=== PATIENT | female | born 1955 | race Caucasian/White ===

== ENCOUNTER 2021-07-18 10:42 | Emergency (ER) | payer BC, SELFPAY ==
--- NOTE | 2021-07-18 11:00 | ED.WOUNDLAC ---
HPI - Wound/Laceration General Chief Complaint: Wound/Laceration Stated Complaint: cut left 5th finger Time Seen by Provider: 07/18/21 11:00 Source: patient, RN notes reviewed and old records reviewed Mode of arrival: ambulatory Limitations: no limitations History of Present Illness HPI narrative: 65-year-old female presents to the [facility] with complaints of a cut to the left fifth finger. States that she was trimming a roast to put in the crockpot. Approximately 30 minutes prior to arrival. Bleeding is well controlled. Full range of motion of the finger. Laceration to the dorsal aspect PIP joint fifth left finger. States her last Tdap was at least 8 years ago Related Data Home Medications Medication Instructions Recorded Confirmed clobetasol TOPICAL 07/18/21 07/18/21 levothyroxine 07/18/21 metronidazole applic TOPICAL 07/18/21 prasterone (dhea) [Intrarosa] VAGINAL 07/18/21 rosuvastatin mg 07/18/21 Allergies Allergy/AdvReac Type Severity Reaction Status Date / Time PAPER TAPE Allergy Mild RASH Uncoded 07/18/21 12:45 Review of Systems Review of Systems: All systems reviewed & are unremarkable except as noted in HPI and below Constitutional: Constitutional: Reports no additional constitutional complaints, Denies chills and Denies fever(s) Eyes: Eyes: Reports no additional eye complaints ENT: Reports system reviewed and no additional complaints, except as documented Cardiovascular: Cardiovascular: Reports no additional cardiovascular complaints Respiratory: Respiratory: Reports no additional respiratory complaints Gastrointestinal: Gastrointestinal: Reports no additional gastrointestinal complaints Musculoskeletal: Musculoskeletal: Reports no additional musculoskeletal complaints Integumentary/Breasts: Skin/Breast: Reports as per HPI Neurologic: Reports system reviewed and no additional complaints, except as documented Psychiatric: Psychiatric: Reports no additional psychiatric complaints Allergic/Immunologic: Allergic/Immunologic: Reports no additional allergic/immunologic complaints [facility] Past Medical History Medical History (Updated 07/18/21 @ 14:55 by Bailee Blair) High cholesterol Thyroid disorder Surgical History Surgical History (Updated 07/18/21 @ 14:55 by Bailee Blair) No history of previous surgery Family History Family History Mother Carcinoma of colon Family history of malignant neoplasm of breast in first degree relative Grandparent Carcinoma of colon Social History Social History (Reviewed 07/18/21 @ 14:55 by Bailee Martínez Smoking status: Never smoker Alcohol intake: current Comments At the time of my signature, I reviewed and agree with the nursing past medical, surgical, social, and family history. There is no relevant family history pertinent to the patient complaint. Exam Const: General: healthy appearing, no acute distress and alert Nutritional Appearance: well nourished Orientation/consciousness: patient oriented x3 Limitations: no limitations HENMT: Head: normal to inspection Eyes: Pupils: Equal, round and reactive pupils present Neck: Neck: normal visual inspection, no lymphadenopathy and no meningeal signs Chest: Chest palpation & inspection: normal inspection of the chest Resp: Effort & Inspection: normal respiratory effort Cardio: Rate: regular rate Rhythm: regular rhythm Back/Spine/Pelvis: Back: no CVA tenderness Skin: General skin exam: normal color Wounds: wounds noted flap left 5th finger size (1), bed beefy red and without odor; without any surrounding erythema Neuro: General: patient oriented x3, moves all extremities, no meningeal signs and no focal motor deficits Speech: normal speech Gait exam (Neuro): Normal gait present Extrem: General: normal to inspection Psych: Appearance: grossly normal and well kempt Mental Status: mental status grossly normal Aff
[2021-07-18 11:01] VITALS: BP 114/68; PULSE 66; RESP 17; TEMP 36.3; O2SAT 100
[2021-07-18 11:02] VITALS: BP 114/68; PULSE 66; RESP 17; TEMP 36.3; O2SAT 100
[2021-07-18] MEDS: TETANUS,DIPHTHERIA,AC PERTUSSIS ADULT (0.5 ML) BOOSTRIX IM (12:01)
== END 2021-07-18 12:20 | disposition home or self-care (01) ==
PROVIDERS: Emergency Provider Nurse Practitioner
DX: S61.217A Laceration without foreign body of left little finger without damage to nail, initial encounter (principal); W45.8XXA Other foreign body or object entering through skin, initial encounter; Y93.G1 Activity, food preparation and clean up; Z23 Encounter for immunization; E78.00 Pure hypercholesterolemia, unspecified; E07.9 Disorder of thyroid, unspecified
CPT/HCPCS: 12001; 90471; 90715; 99212; G0463

== ENCOUNTER 2022-04-24 01:48 | Day surgery (SDC) | payer BC, SELFPAY ==
[2022-04-08 14:47] VITALS: BMI 31.5
[2022-04-24 11:42] VITALS: BP 106/70; PULSE 67; RESP 20; TEMP 36.3; O2SAT 100
[2022-04-24] MEDS: LACTATED RINGERS 1,000 ML 150 ML IV CONT (11:48)
--- NOTE | 2022-04-24 12:27 | WPDANESEPPF ---
Anes - Initial Pre Proc Eval Procedure: Operation Date: 04/24/22 13:00 Proposed Procedures p Screening Colonoscopy - Anton Morales MD Date/Time: 04/24/22 12:27 Surgeon: Anton Morales MD Pre Op Diagnosis: yo screen,per hx colon polyps, fam hx of colon ca Patient Data Age: 66 Gender: F Height: 1.65 m Weight: 86.4 kg Last Vital Signs Temp 97.4 F L 04/24/22 11:42 Pulse 67 04/24/22 11:42 Resp 20 04/24/22 11:42 BP 106/70 04/24/22 11:42 Pulse Ox 100 04/24/22 11:42 O2 Del Method Room Air 04/24/22 11:42 Allergies Allergy/AdvReac Type Severity Reaction Status Date / Time PAPER TAPE Allergy Mild RASH Uncoded 04/24/22 11:41 Home Medications Medication Instructions Recorded Confirmed Type clobetasol 0.05 % topical ointment 1 applic topical PRN PRN Rash 07/18/21 04/08/22 History levothyroxine 112 mcg tablet 112 mcg PO DAILY 07/18/21 04/08/22 History metronidazole 0.75 % topical cream 1 applic topical PRN PRN Rash 07/18/21 04/08/22 History prasterone (dhea) 6.5 mg vaginal 6.5 mg vaginal DAILY 07/18/21 04/08/22 History insert (Intrarosa) rosuvastatin 5 mg tablet 5 mg PO DAILY 07/18/21 04/08/22 History Lactobacillus rhamnosus GG 10 1 cap PO DAILY 04/08/22 04/08/22 History billion cell-inulin 200 mg capsule ([facility]) cholecalciferol (vitamin D3) 25 25 mcg PO DAILY 04/08/22 04/08/22 History mcg (1,000 unit) tablet (Vitamin D3) fluticasone propionate 50 2 spray intranasal DAILY 04/08/22 04/08/22 History mcg/actuation nasal spray,suspension (Allergy Relief (fluticasone)) omega 2-yyi-cze-fish oil 1,000 mg 1 cap PO DAILY 04/08/22 04/08/22 History (120 mg-180 mg) capsule (Fish Oil) zoledronic acid 5 mg/100 mL in 5 mg IV ONCE 04/08/22 04/08/22 History mannitol 5 %-water intravenous piggybck (Reclast) Patient hx anesthesia problems: none Family hx anesthesia problems: none Results Review: All pre-operative results and documents have been reviewed as part of the pre-operative evaluation. [facility] Past Medical History Medical History (Updated 07/19/21 @ 00:01 by Armando Flores) High cholesterol Thyroid disorder Surgical History Surgical History (Updated 07/18/21 @ 14:55 by Bailee Blair, SOFTWARE SECURITY CONSULTANT) No history of previous surgery Family History Family History Mother Carcinoma of colon Family history of malignant neoplasm of breast in first degree relative Grandparent Carcinoma of colon Social History Social History Smoking status: Never smoker Alcohol intake: current Substance use: never Substance use type: does not use Living arrangements: with family Spiritual care concerns: No Anes - Eval Final PreProcedure Day of Procedure 04/24/22 12:27 Patient weight: obese Heart: regular rate and rhythm Lungs: clear to auscultation Airway: Mallampati scale class II Neurological: alert and oriented Last oral intake: >/= 8 hours ASA classification: III Emergent: no Anesthetic plan: proceed Anesthesia type and monitoring: general GIVS and standard monitoring Results Review: All pre-operative results and documents have been reviewed as part of the pre-operative evaluation. Informed Consent: The patient's anesthetic plan and its attendant risks and benefits were discussed with the patient/family/POA. Questions were solicited and answers provided to the satisfaction of the patient/family/POA.
--- NOTE | 2022-04-24 12:46 | PM.HPGS ---
History of Present Illness History of Present Illness Consent: Risks, benefits, and alternatives have been discussed and questions answered. Patient agrees to proceed with procedure. Chief complaint: yo screen,per hx colon polyps, fam hx of colon ca Narrative: Eula Mendes is a 66 year old female Presents for screening colonoscopy. Patient reports that her current weight appetite and bowel movements are normal. Patient denies abdominal pain. She has had no bleeding. Family history is significant her mother had colon cancer. Grandfather on both maternal and paternal sides of the family had colon cancer. Patient has previously had colon polyps in 2017 and previously in 2012. Patient presents today for screening colonoscopy. She reports that her current weight appetite bowel movements are normal. She denies any blood in her stools. Review of Systems Review of Systems: Review of systems noncontributory. [facility] Past Medical History Medical History (Updated 04/24/22 @ 12:48 by Anton Morales MD) High cholesterol Thyroid disorder Surgical History Surgical History (Updated 07/18/21 @ 14:55 by Baiele Blair APRN) No history of previous surgery Family History Family History Mother Carcinoma of colon Family history of malignant neoplasm of breast in first degree relative Grandparent Carcinoma of colon Social History Social History Smoking status: Never smoker Alcohol intake: current Substance use: never Substance use type: does not use Living arrangements: with family Spiritual care concerns: No Meds Home Medications and Allergies Home Medications Medication Instructions Recorded Confirmed Type clobetasol 0.05 % topical ointment 1 applic topical PRN PRN Rash 07/18/21 04/08/22 History levothyroxine 112 mcg tablet 112 mcg PO DAILY 07/18/21 04/08/22 History metronidazole 0.75 % topical cream 1 applic topical PRN PRN Rash 07/18/21 04/08/22 History prasterone (dhea) 6.5 mg vaginal 6.5 mg vaginal DAILY 07/18/21 04/08/22 History insert (Intrarosa) rosuvastatin 5 mg tablet 5 mg PO DAILY 07/18/21 04/08/22 History Lactobacillus rhamnosus GG 10 1 cap PO DAILY 04/08/22 04/08/22 History billion cell-inulin 200 mg capsule ([facility]) cholecalciferol (vitamin D3) 25 25 mcg PO DAILY 04/08/22 04/08/22 History mcg (1,000 unit) tablet (Vitamin D3) fluticasone propionate 50 2 spray intranasal DAILY 04/08/22 04/08/22 History mcg/actuation nasal spray,suspension (Allergy Relief (fluticasone)) omega 6-tqz-tut-fish oil 1,000 mg 1 cap PO DAILY 04/08/22 04/08/22 History (120 mg-180 mg) capsule (Fish Oil) zoledronic acid 5 mg/100 mL in 5 mg IV ONCE 04/08/22 04/08/22 History mannitol 5 %-water intravenous piggybck (Reclast) Allergies Allergy/AdvReac Type Severity Reaction Status Date / Time PAPER TAPE Allergy Mild RASH Uncoded 04/24/22 11:41 Vital Signs Vital Signs - 24 hr 04/24/22 11:42 Temperature 97.4 F L Pulse Rate 67 Respiratory Rate 20 Blood Pressure 106/70 Pulse Oximetry 100 Oxygen Delivery Room Air Exam Narrative: Physical exam reveals patient be alert. Vital signs stable. HEENT exam is unremarkable. Patient is anicteric. Lungs are clear to auscultation and percussion. Heart is without murmur or extra sounds. Abdomen bowel sounds are present soft nontender with no organomegaly. Digital external rectal exam is normal. Assessment and Plan Assessment and plan (1) History of colon polyps: Code(s): Z86.010 - Personal history of colonic polyps Status: Acute Assessment and Plan: Patient has a prior history of colon polyps. Plan for surveillance colonoscopy every 5 years. Further recommendations will be given after colonoscopy. (2) Family history of colon cancer in mother: Code(s): Z
[2022-04-24 13:16] VITALS: BP 93/46; PULSE 59; RESP 17; O2SAT 95
[2022-04-24 13:26] VITALS: BP 98/59; PULSE 59; RESP 25; O2SAT 98
[2022-04-24 13:36] VITALS: BP 99/61; PULSE 52; RESP 23; O2SAT 99
== END 2022-04-24 13:45 | disposition home or self-care (01) ==
PROVIDERS: PCP Internal Medicine; Visit Provider Internal Medicine Gastroenterology
PROC: 0DJD8ZZ Inspection of Lower Intestinal Tract, Via Natural or Artificial Opening Endoscopic (ICD-10-PCS; CPT 45378; principal; 2022-04-24 13:00)
DX: Z12.11 Encounter for screening for malignant neoplasm of colon (principal); D12.0 Benign neoplasm of cecum; D12.3 Benign neoplasm of transverse colon; Z80.0 Family history of malignant neoplasm of digestive organs; K57.30 Diverticulosis of large intestine without perforation or abscess without bleeding; E78.00 Pure hypercholesterolemia, unspecified; E03.9 Hypothyroidism, unspecified; E66.9 Obesity, unspecified; Z68.31 Body mass index [BMI] 31.0-31.9, adult
CPT/HCPCS: 45385; 88305; J2001; J2704; J7120

== ENCOUNTER 2022-07-14 10:07 | Emergency (ER) | payer MEDICARE, BC, SELFPAY ==
[2022-07-14] VITALS (29 sets, daily range): BP systolic 104–127; BP diastolic 56–70; PULSE 51–66; RESP 11–24; TEMP 36.3–36.5; O2SAT 95–100
--- NOTE | ~2022-07-14 | XR_ITS ---
EXAMINATION: XR chest 2V DATE: 07/14/2022 11:53 INDICATION: Left chest pain. TECHNIQUE: Frontal and lateral views of the chest were obtained. COMPARISON: Chest 2 views 03/13/2014, CT abdomen and pelvis 04/24/2015 FINDINGS: A calcified left lung nodule and calcified left hilar and mediastinal lymph nodes are consi stent with old granulomatous disease. No pleural effusion or pneumothorax. The heart size is normal. There is a suture anchor in right humeral head. IMPRESSION: 1. No acute cardiopulmonary disease. Reviewed, dictated and finalized at location A. ATIONS ASSISTANT
--- NOTE | 2022-07-14 10:08 | ECG_ITS ---
Measurements Intervals [place] Rate: 64 P: 31 MD: 183 QRS: 55 QRSD: 88 T: 44 QT: 383 QTc: 397 Interpretive Statements SINUS RHYTHM NORMAL ECG COMPARED TO ECG 12/26/2018 10:51:46 SINUS RHYTHM NOW PRESENT Electronically Signed On 07-14-2022 10:20:19 [employer] by Chinmay Sparrow D.O.
[2022-07-14 10:38] LABS: Basophils Absolute Auto 0.1 K/mm3 (0.0-0.1); Basophils Percent Auto 0.7 % (0.2-1.2); Eosinophils Absolute Auto 0.1 K/mm3 (0-0.3); Eosinophils Percent Auto 0.9 % (0-4.4); Hematocrit 41.4 % (37.0-47.0); Hemoglobin 13.8 g/dL (12.0-15.0); Immature Granulocyte Absolute 0.02 K/mm3 (0.00-0.031); Immature Granulocyte Percent A 0.3 % (0-0.5); Lymphocytes Absolute Auto 1.66 K/mm3 (0.9-3.2); Lymphocytes Percent Auto 23.5 % (18.3-44.2); Mean Corpuscular HGB Conc 33.3 g/dl (32-36); Mean Corpuscular Hemoglobin 29.4 pg (26-34); Mean Corpuscular Volume 88.1 fl (80-100); Mean Platelet Volume 10.5 fl (7.4-10.4); Monocytes Absolute Auto 0.4 K/mm3 (0.1-0.6); Monocytes Percent Auto 5.8 % (2.6-8.5); Neutrophils Absolute Auto 4.9 K/mm3 (1.3-6.7); Neutrophils Percent Auto 68.8 % (45.5-73.1); Platelet Count Result 186 k/mm3 (150-375); Red Cell Distribution Width 13.2 % (11.5-14.5); White Blood Count 7.1 K/mm3 (4.5-10.0)
[2022-07-14 10:45] LABS: Alanine Aminotransferase 25 U/L (6-35); Albumin Level 4.4 g/dL (3.5-5.1); Alkaline Phosphatase 81 U/L (38-126); Anion Gap 7 mmol/L (8-16); Aspartate Amino Transferase 33 U/L (14-36); Bilirubin,Total 0.6 mg/dL (0.2-1.3); Blood Urea Nitrogen 19 mg/dL (7-17); Calcium 8.6 mg/dL (8.4-10.2); Carbon Dioxide 25 mmol/L (22-30); Chloride 101 mmol/L (98-107); Estimated CRCL calculation 63 ml/min; Estimated Glomerular Filt Rate > 60; Glucose 83 mg/dL (65-110); Lipase 431 U/L (23-300); Potassium 3.7 mmol/L (3.4-5.0); Sodium 133 mmol/L (137-145)
[2022-07-14 10:50] LABS: Prothrombin Time 12.7 Seconds (11.1-14.7)
[2022-07-14 10:51] LABS: Partial Thromboplastin Time 26.8 SECONDS (22.3-36.8)
[2022-07-14 10:57] LABS: Troponin I < 0.012 ng/mL (0.000-0.034)
[2022-07-14 13:47] LABS: Troponin I < 0.012 ng/mL (0.000-0.034)
[2022-07-14 17:05] LABS: Troponin I < 0.012 ng/mL (0.000-0.034)
--- NOTE | 2022-07-14 19:04 | ED.CHESTPAIN ---
HPI - Chest Pain General Chief Complaint: Chest Pain Stated Complaint: cp, jaw pain arm pain Time Seen by Provider: 07/14/22 18:26 Source: patient Mode of arrival: ambulatory Limitations: no limitations History of Present Illness HPI narrative: Patient is a 66-year-old female who presents to the ED with report of CP. Patient reports she did a spin class from 830 to 9:30 AM. She felt slightly nauseous and fatigued during the workout class. Approximately 30 minutes after working out she developed pain and numbness in her left-sided jaw, pain in her left upper arm and pressure in her midsternal chest, radiating through to her back. Initial episode of pain lasted for approximately 30 minutes before resolving. Pain has been intermittent while waiting in the waiting room. Denies any pain currently. She did feel slightly short of breath with her pain. Patient denies any vomiting, abdominal pain, recent cough or cold symptoms, fevers, pain or swelling in lower extremities. She does have a history of hyperlipidemia and obesity and reports a family history of heart disease in her father at age 60. No smoking, hypertension, diabetes mellitus. Patient denies history of DVT or PE. She does note she recently traveled via car across country to [place] and flew to and from [place]. Related Data Home Medications Medication Instructions Recorded Confirmed clobetasol 0.05 % topical ointment 1 applic topical PRN PRN Rash 07/18/21 04/08/22 levothyroxine 112 mcg tablet 112 mcg PO DAILY 07/18/21 04/08/22 metronidazole 0.75 % topical cream 1 applic topical PRN PRN Rash 07/18/21 04/08/22 prasterone (dhea) 6.5 mg vaginal 6.5 mg vaginal DAILY 07/18/21 04/08/22 insert (Intrarosa) rosuvastatin 5 mg tablet 5 mg PO DAILY 07/18/21 04/08/22 Lactobacillus rhamnosus GG 10 1 cap PO DAILY 04/08/22 04/08/22 billion cell-inulin 200 mg capsule ([facility]) cholecalciferol (vitamin D3) 25 25 mcg PO DAILY 04/08/22 04/08/22 mcg (1,000 unit) tablet (Vitamin D3) fluticasone propionate 50 2 spray intranasal DAILY 04/08/22 04/08/22 mcg/actuation nasal spray,suspension (Allergy Relief (fluticasone)) omega 4-zvg-fws-fish oil 1,000 mg 1 cap PO DAILY 04/08/22 04/08/22 (120 mg-180 mg) capsule (Fish Oil) zoledronic acid 5 mg/100 mL in 5 mg IV ONCE 04/08/22 04/08/22 mannitol 5 %-water intravenous piggybck (Reclast) Allergies Allergy/AdvReac Type Severity Reaction Status Date / Time PAPER TAPE Allergy Mild RASH Uncoded 07/14/22 18:49 Review of Systems Review of Systems: CONSTITUTIONAL: Denies fever, chills, or sweats. ENT: Denies rhinorrhea, congestion, sore throat. CARDIOVASCULAR: See HPI. RESPIRATORY: See HPI. GASTROINTESTINAL: Reports nausea. Denies abdominal pain, vomiting, or diarrhea. GENITOURINARY: Denies dysuria or hematuria. MUSCULOSKELETAL: See HPI. NEUROLOGIC: Denies headache, numbness, or weakness. All systems reviewed & are unremarkable except as noted in HPI and below PMFSH Past Medical History Medical History High cholesterol Thyroid disorder Surgical History Surgical History No history of previous surgery Family History Family History (Updated 07/14/22 @ 19:23 by Paige Magdaleno PA-C) Mother Carcinoma of colon Family history of malignant neoplasm of breast in first degree relative Grandparent Carcinoma of colon Father Heart disease Social History Social History Smoking status: Never smoker Alcohol intake: current Substance use: never Substance use type: does not use Spiritual care concerns: No Exam Narrative: GENERAL: Well appearing, obese, non-toxic, in no acute distress. HEAD: Normocephalic, atraumatic. NECK: Supple. No adenopathy, no masses. RESPIRATORY: Airway patent, respiratio
[2022-07-14 20:39] LABS: D Dimer 0.47 ug/mL (<0.48)
== END 2022-07-14 22:46 | disposition home or self-care (01) ==
PROVIDERS: Emergency Medicine; Emergency Provider Physician Assistant; PCP Internal Medicine
DX: R07.89 Other chest pain (principal); E78.00 Pure hypercholesterolemia, unspecified; E07.9 Disorder of thyroid, unspecified
CPT/HCPCS: 36415; 71046; 80053; 83690; 84484; 85025; 85380; 85610; 85730; 93005; 99284

== ENCOUNTER 2022-07-24 10:21 | Outpatient (CLI) | payer MEDICARE, BC, SELFPAY ==
[2022-07-24 11:50] LABS: Cholesterol 184 mg/dL (0-200); HDL Direct 67 mg/dL; Hemoglobin A1C 5.2 % (<5.7); Triglycerides 97 mg/dL (<150)
[2022-07-24 12:01] LABS: LDL Cholesterol Direct 68 mg/dL
== END 2022-07-24 10:22 | disposition home or self-care (01) ==
PROVIDERS: PCP Internal Medicine; Visit Provider Internal Medicine
DX: R07.9 Chest pain, unspecified (principal); R79.9 Abnormal finding of blood chemistry, unspecified; E03.8 Other specified hypothyroidism
CPT/HCPCS: 36415; 80061; 83036; 84443

== ENCOUNTER 2023-07-23 00:10 | Day surgery (SDC) | payer MEDICARE, BC, SELFPAY ==
--- NOTE | 2023-06-22 14:09 | PC.NURSE ---
Report to the Outpatient Waiting Room, entrance under the green pavilion located off [facility], at time _0615 on date __06/25/23 . Planned Procedure Time: __814 . Time changes happen often and if your time is changed the preop area will call you the afternoon before. - You and your visitor will be asked to self-screen and do not enter if you have any COVID symptoms. - A mask is optional within the hospital at this time. Patients may have clear liquids (water, carbonated beverages, clear teas, apple juice) until 3 hours prior to surgery( 5:15 am ) with a maximum of 20 ounces. - No food from midnight until time of surgery - Take the following medications with a SIP of water the morning of surgery: LEVOTHYROXINE DO NOT STOP ANY OF YOUR OTHER PRESCRIPTION MEDICATIONS PRIOR TO SURGERY ?EXCEPT THE FOLLOWING Medications to discontinue per physician ____ALL VITAMINS AND SUPPLEMENTS 3 DAYS PRE OP LAST DOSE 06/21/23 Please no make-up, nail [place] islander, hairspray, perfume, deodorant, or body powder the day of surgery. No jewelry (including any body piercings) or valuables the day of surgery, leave them at home. Please take a shower or bath the night before, or the morning of, surgery with an antibacterial soap. Wear comfortable, loose fitting clothing. Children are encouraged to wear pajamas. - Jewelry must be removed prior to entering the operating room. Rings and piercings that are not removed may be cut off. - The hospital will not accept responsibility for valuables. - Please leave all valuables, including medications, at home the day of surgery. If you are going home after surgery, a licensed taxicab driver must drive you home. - NO public transportation without another adult if you receive anesthesia. - We recommend that an adult stay with you for 24 hours following discharge. - We also recommend that you do not drive, make important decision, drink alcoholic beverages, or take any drugs that were not prescribed by your health care provider for at least 24 hours after your discharge time. For Pediatric surgeries, we recommend two adults accompany the child home. Follow any additional instructions given to you from your surgeon. If you or anyone in your household have experienced Covid symptoms in the past week, please notify your surgeon or the nurse liaison at the phone number below for possible testing. Telephone instructions given to _PATIENT and asked if any additional questions and then verbalized understanding. Patient advised to call surgeon office or pre surgery nurse liaison [phone] if any additional questions.
[2023-06-22 14:14] VITALS: BMI 35.8
--- NOTE | 2023-06-23 07:55 | PM.IMHP ---
H&P: HPI History of Present Illness Date/Time: 06/23/23 07:55 Chief Complaint: cystocele Narrative: she is recurrent cystocele after colpopexy and sling procedure. She does not have incontinence. She is history of asymptomatic bacteriuria. She desires repair of her cystocele Review of Systems Review of Systems: All systems reviewed & are unremarkable except as noted in HPI and below PMFSH Past Medical History Medical History High cholesterol Thyroid disorder Surgical History Surgical History No history of previous surgery Family History Family History Mother Carcinoma of colon Family history of malignant neoplasm of breast in first degree relative Grandparent Carcinoma of colon Father Heart disease Social History Social History Smoking status: Never smoker Alcohol intake: current Substance use: never Substance use type: does not use Living arrangements: with family Spiritual care concerns: No Meds Home Medications and Allergies Home Medications Medication Instructions Recorded Confirmed Type clobetasol 0.05 % topical ointment 1 applic topical PRN PRN Rash 07/18/21 06/22/23 History levothyroxine 112 mcg tablet 112 mcg PO DAILY 07/18/21 06/22/23 History metronidazole 0.75 % topical cream 1 applic topical PRN PRN Rash 07/18/21 06/22/23 History prasterone (dhea) 6.5 mg vaginal 6.5 mg vaginal 2XW 07/18/21 06/22/23 History insert (Intrarosa) rosuvastatin 5 mg tablet 5 mg PO DAILY 07/18/21 06/22/23 History Lactobacillus rhamnosus GG 10 1 cap PO DAILY 04/08/22 06/22/23 History billion cell-inulin 200 mg capsule ([employer]) cholecalciferol (vitamin D3) 25 25 mcg PO DAILY 04/08/22 06/22/23 History mcg (1,000 unit) tablet (Vitamin D3) fluticasone propionate 50 2 spray intranasal HS 04/08/22 06/22/23 History mcg/actuation nasal spray,suspension (Allergy Relief (fluticasone)) omega 2-gex-jte-fish oil 1,000 mg 1 cap PO DAILY 04/08/22 06/22/23 History (120 mg-180 mg) capsule (Fish Oil) zoledronic acid 5 mg/100 mL in 5 mg IV ONCE 04/08/22 06/22/23 History mannitol 5 %-water intravenous piggybck (Reclast) cetirizine 10 mg tablet (Zyrtec) 10 mg PO DAILY 06/22/23 06/22/23 History d-mannose 500 mg capsule 500 mg PO DAILY 06/22/23 06/22/23 History Allergies Allergy/AdvReac Type Severity Reaction Status Date / Time bupivacaine AdvReac Other Verified 06/22/23 13:56 PAPER TAPE Allergy Mild RASH Uncoded 06/22/23 13:51 Exam Narrative: no acute distress normal breathing alert oriented x3 cystocele to the introitus with good apical support Assessment and Plan Assessment and plan (1) Cystocele: Status: Acute Assessment and Plan: we are planning for a cystocele repair. She understands risks of bleeding, infection, damage surrounding organs, damage to urinary tract, recurrent prolapse, recurrent incontinence, dyspareunia. She agrees to proceed
--- NOTE | 2023-06-25 07:16 | WPDHPUPDATE1 ---
History and Physical Update Update Date/Time: 06/25/23 07:16 History and Physical has been reviewed, including an updated exam of the patient. There are NO changes in the patient's condition. Risks, benefits, and alternatives have been discussed and questions answered. Patient agrees to proceed with procedure.
--- NOTE | 2023-07-18 10:08 | PM.IMHP ---
H&P: HPI History of Present Illness Date/Time: 07/18/23 10:08 Chief Complaint: cystocele Narrative: 67-year-old with pelvic organ prolapse. She has a moderate cystocele. She has a degree of incomplete bladder emptying. She is asymptomatic bacteriuria as well. She would like a cystocele repair for pelvic organ prolapse Review of Systems Review of Systems: All systems reviewed & are unremarkable except as noted in HPI and below PMFSH Past Medical History Medical History (Updated 07/18/23 @ 10:10 by Familia Bartholomew MD) Cystocele High cholesterol Thyroid disorder Surgical History Surgical History No history of previous surgery Family History Family History Mother Carcinoma of colon Family history of malignant neoplasm of breast in first degree relative Grandparent Carcinoma of colon Father Heart disease Social History Social History Smoking status: Never smoker Alcohol intake: current Substance use: never Substance use type: does not use Living arrangements: with family Spiritual care concerns: No Meds Home Medications and Allergies Home Medications Medication Instructions Recorded Confirmed Type clobetasol 0.05 % topical ointment 1 applic topical PRN PRN Rash 07/18/21 06/22/23 History levothyroxine 112 mcg tablet 112 mcg PO DAILY 07/18/21 06/22/23 History metronidazole 0.75 % topical cream 1 applic topical PRN PRN Rash 07/18/21 06/22/23 History prasterone (dhea) 6.5 mg vaginal 6.5 mg vaginal 2XW 07/18/21 06/22/23 History insert (Intrarosa) rosuvastatin 5 mg tablet 5 mg PO DAILY 07/18/21 06/22/23 History Lactobacillus rhamnosus GG 10 1 cap PO DAILY 04/08/22 06/22/23 History billion cell-inulin 200 mg capsule ([facility]) cholecalciferol (vitamin D3) 25 25 mcg PO DAILY 04/08/22 06/22/23 History mcg (1,000 unit) tablet (Vitamin D3) fluticasone propionate 50 2 spray intranasal HS 04/08/22 06/22/23 History mcg/actuation nasal spray,suspension (Allergy Relief (fluticasone)) omega 8-out-oma-fish oil 1,000 mg 1 cap PO DAILY 04/08/22 06/22/23 History (120 mg-180 mg) capsule (Fish Oil) zoledronic acid 5 mg/100 mL in 5 mg IV ONCE 04/08/22 06/22/23 History mannitol 5 %-water intravenous piggybck (Reclast) cetirizine 10 mg tablet (Zyrtec) 10 mg PO DAILY 06/22/23 06/22/23 History d-mannose 500 mg capsule 500 mg PO DAILY 06/22/23 06/22/23 History Allergies Allergy/AdvReac Type Severity Reaction Status Date / Time bupivacaine AdvReac Other Verified 06/22/23 13:56 PAPER TAPE Allergy Mild RASH Uncoded 06/22/23 13:51 Exam Narrative: no acute distress normal breathing cystocele to the introitus Assessment and Plan Assessment and plan (1) Cystocele with prolapse: Code(s): N81.4 - Uterovaginal prolapse, unspecified Status: Acute Assessment and Plan: plan for cystocele repair. Understands risks of bleeding, infection, damage to surrounding organs, damage to the bladder. Understands risks of recurrence and dyspareunia. Understands it may not help her asymptomatic bacteriuria. Understands the risk of de Enoch urinary incontinence. Agrees to proceed
--- NOTE | 2023-07-20 11:38 | PC.NURSE ---
Report to the Outpatient Waiting Room, entrance under the green pavilion located off [facility], at time _0715_ on date _[id number]_. Planned Procedure Time: _0915_. Time changes happen often and if your time is changed the preop area will call you the afternoon before. - You and your visitor will be asked to self-screen and do not enter if you have any COVID symptoms. - A mask is optional within the hospital at this time. Patients may have clear liquids (water, carbonated beverages, clear teas, apple juice) until 3 hours prior to surgery with a maximum of 20 ounces. - No food from midnight until time of surgery Take the following medications with a SIP of water the morning of surgery: ____Levothyroxine DO NOT STOP ANY OF YOUR OTHER PRESCRIPTION MEDICATIONS PRIOR TO SURGERY ?EXCEPT THE FOLLOWING Medications to discontinue per physician All vitamins and supplements Date to take last [id number] Please no make-up, nail ethiopian, hairspray, perfume, deodorant, or body powder the day of surgery. No jewelry (including any body piercings) or valuables the day of surgery, leave them at home. Please take a shower or bath the night before, or the morning of, surgery with an antibacterial soap. Wear comfortable, loose fitting clothing. - Jewelry must be removed prior to entering the operating room. Rings and piercings that are not removed may be cut off. - The hospital will not accept responsibility for valuables. - Please leave all valuables, including medications, at home the day of surgery. If you are going home after surgery, a licensed ice delivery driver must drive you home. - NO public transportation without another adult if you receive anesthesia. - We recommend that an adult stay with you for 24 hours following discharge. - We also recommend that you do not drive, make important decision, drink alcoholic beverages, or take any drugs that were not prescribed by your health care provider for at least 24 hours after your discharge time. Follow any additional instructions given to you from your surgeon. If you or anyone in your household have experienced Covid symptoms in the past week, please notify your surgeon or the nurse liaison at the phone number below for possible testing. Telephone instructions given to _Eula_and asked if any additional questions and then verbalized understanding. Patient advised to call surgeon office or pre surgery nurse liaison [phone] if any additional questions.
[2023-07-23] VITALS (11 sets, daily range): BP systolic 105–145; BP diastolic 52–80; PULSE 60–87; RESP 12–16; TEMP 36.2–36.8; O2SAT 94–100
--- NOTE | 2023-07-23 07:17 | WPDHPUPDATE1 ---
History and Physical Update Update Date/Time: 07/23/23 07:17 History and Physical has been reviewed, including an updated exam of the patient. There are NO changes in the patient's condition. Risks, benefits, and alternatives have been discussed and questions answered. Patient agrees to proceed with procedure.
[2023-07-23] MEDS: LACTATED RINGERS 1,000 ML 30 ML IV CONT ×2 (07:45→11:10)
--- NOTE | 2023-07-23 08:23 | WPDANESEPPF ---
Anes - Initial Pre Proc Eval Procedure: Operation Date: 07/23/23 09:15 Proposed Procedures p Cystocele Repair - Familia Bartholomew MD Date/Time: 07/23/23 08:23 Surgeon: Familia Bartholomew MD Pre Op Diagnosis: midline cystocele Patient Data Age: 67 Gender: F Height: 1.65 m Weight: 95.7 kg Last Vital Signs Temp 98.3 F 07/23/23 07:35 Pulse 66 07/23/23 07:35 Resp 16 07/23/23 07:35 BP 116/67 07/23/23 07:35 Pulse Ox 96 07/23/23 07:35 O2 Del Method Room Air 07/23/23 07:35 Allergies Allergy/AdvReac Type Severity Reaction Status Date / Time bupivacaine AdvReac Other Verified 06/22/23 13:56 PAPER TAPE Allergy Mild RASH Uncoded 06/22/23 13:51 Home Medications Medication Instructions Recorded Confirmed Type clobetasol 0.05 % topical ointment 1 applic topical PRN PRN Rash 07/18/21 06/22/23 History levothyroxine 112 mcg tablet 112 mcg PO DAILY 07/18/21 06/22/23 History metronidazole 0.75 % topical cream 1 applic topical PRN PRN Rash 07/18/21 06/22/23 History prasterone (dhea) 6.5 mg vaginal 6.5 mg vaginal 2XW 07/18/21 06/22/23 History insert (Intrarosa) rosuvastatin 5 mg tablet 5 mg PO DAILY 07/18/21 06/22/23 History Lactobacillus rhamnosus GG 10 1 cap PO DAILY 04/08/22 06/22/23 History billion cell-inulin 200 mg capsule ([facility]) cholecalciferol (vitamin D3) 25 25 mcg PO DAILY 04/08/22 06/22/23 History mcg (1,000 unit) tablet (Vitamin D3) fluticasone propionate 50 2 spray intranasal HS 04/08/22 06/22/23 History mcg/actuation nasal spray,suspension (Allergy Relief (fluticasone)) omega 9-gco-flk-fish oil 1,000 mg 1 cap PO DAILY 04/08/22 06/22/23 History (120 mg-180 mg) capsule (Fish Oil) zoledronic acid 5 mg/100 mL in 5 mg IV ONCE 04/08/22 06/22/23 History mannitol 5 %-water intravenous piggybck (Reclast) cetirizine 10 mg tablet (Zyrtec) 10 mg PO DAILY 06/22/23 06/22/23 History d-mannose 500 mg capsule 500 mg PO DAILY 06/22/23 06/22/23 History docusate sodium 100 mg capsule 100 mg PO BID #60 caps 07/23/23 Rx (Colace) hydrocodone 5 mg-acetaminophen 325 1 tablet PO Q6H PRN pain #20 tabs 07/23/23 Rx mg tablet Patient hx anesthesia problems: post op nausea/vomiting Family hx anesthesia problems: none Results Review: All pre-operative results and documents have been reviewed as part of the pre-operative evaluation. [facility] Past Medical History Medical History (Updated 07/18/23 @ 10:10 by Familia Bartholomew MD) Cystocele High cholesterol Thyroid disorder Surgical History Surgical History No history of previous surgery Family History Family History Mother Carcinoma of colon Family history of malignant neoplasm of breast in first degree relative Grandparent Carcinoma of colon Father Heart disease Social History Social History Smoking status: Never smoker Alcohol intake: current Substance use: never Substance use type: does not use Living arrangements: with family Spiritual care concerns: No Anes - Eval Final PreProcedure Day of Procedure 07/23/23 08:23 Patient weight: normal Heart: regular rate and rhythm Lungs: clear to auscultation Airway: Mallampati scale class II Neurological: alert and oriented Last oral intake: >/= 8 hours ASA classification: III Emergent: no Anesthetic plan: proceed Anesthesia type and monitoring: general LMA and standard monitoring Results Review: All pre-operative results and documents have been reviewed as part of the pre-operative evaluation. Informed Consent: The patient's anesthetic plan and its attendant risks and benefits were discussed with the patient/family/POA. Questions were solicited and answers provided to the satisfaction of the patient/family/POA.
[2023-07-23] MEDS: SCOPOLAMINE 1 MG PATCH 1 PATCH TRANSDERM (08:30)
[2023-07-23] MEDS: ceFAZolin 2 GM/D5W 50 ML 2 GM/50 ML BAG IVPB (08:37)
[2023-07-23] MEDS: BUPIVACAINE/EPINEPHRINE 0.5% 10 ML VIAL 30 ML INFILTRATE (09:02)
--- NOTE | 2023-07-23 11:22 | W.PM.PROC2 ---
Procedure Note - Detailed Date of Procedure 07/23/23 Pre-op Diagnosis midline cystocele Bladder lesion Post-op Diagnosis Same Procedure Performed Cystocele repair-anterior colporrhaphy Cystoscopy with biopsy Surgeon Familia Bartholomew MD Anesthesia MAC Indications This will with a symptomatic cystocele. She has no stress incontinence. She presents for cystocele repair. She understands risks of bleeding, infection, damage to surrounding organs, damage to the urinary tract, recurrence of prolapse, dyspareunia, postop voiding dysfunction including incontinence and retention, hip and leg pain. She also understands it may not help her recurrent infections. She agrees to proceed Findings Cystocele repaired. A small red patch at dome of bladder which was biopsied Description of Procedure She was correctly identified. Informed consent obtained. She from the operating room. She was given general anesthesia. She was placed in dorsal thigh position. She was prepped draped sterile fashion. Time-out performed. She had a cystocele to the level the introitus. I placed Kasper catheter. I placed a [place] retractor. I grasped the cystocele with Allis clamps. She had good apical support. I infiltrated subcutaneous tissues with local mixed with epinephrine. A midline vaginal incision. I dissected out laterally both on the patient's right and the left removing the mucosa from the underlying fascial structures. I did this back to the apex as well. I then performed a standard plication type cystocele repair with 0 Vicryl suture. This reduced the cystocele. I trimmed excess vaginal mucosa. I closed the vaginal mucosa in a running fashion with a 2-0 Vicryl suture. There was excellent hemostasis. There was excellent support of the prolapse. On cystoscopy she had mild trabeculation. Both ureters were seen to excrete clear yellow urine. There is no tumors or stones. There is a small hypervascular red patch at the dome of the bladder. I biopsied this area and lightly fulgurated the lesion. There was no bleeding the low insufflation pressures. Her bladder was drained. She was awakened transferred to PACU in stable condition. Implants None Estimated Blood Loss 10 Drains No Packing No Pathology None sent Complications No immediate complications Condition Stable Disposition PACU
== END 2023-07-23 12:25 | disposition home or self-care (01) ==
PROVIDERS: PCP Internal Medicine; Visit Provider Urology
PROC: (CPT 57260; principal; 2023-07-23 09:15)
DX: N32.89 Other specified disorders of bladder (principal); N81.11 Cystocele, midline; E78.00 Pure hypercholesterolemia, unspecified; E07.9 Disorder of thyroid, unspecified
CPT/HCPCS: 52204; 57240; 88305; 88313; 88342; A9270; J0690; J1100; J2250; J2405; J2704; J3010; J7030; J7120; Q9968